=== PATIENT | female | born 1995 | race African-American/Black ===

== ENCOUNTER 2021-03-27 21:19 | Emergency (ER) | payer SELFPAY ==
[~2021-03-27] VITALS: Ht 170.2 cm; Wt 127.0 kg
[2021-03-27] MEDS ORDERED: AZITHROMYCIN250 MG PO (23:04)
== END 2021-03-27 23:30 | disposition home or self-care (01) ==
LOC: FSED 22:01
DX: R05 Cough (principal); J04.0 Acute laryngitis; J02.9 Acute pharyngitis, unspecified; I10 Essential (primary) hypertension
CPT/HCPCS: 83518; 99282